=== PATIENT | female | born 1985 | race Two or more races ===

== ENCOUNTER 2020-04-08 10:35 | Emergency (ER) | payer OTHER ==
[2020-04-08 10:44] VITALS: BP 139/92; PULSE 102; RESP 18; TEMP 98.8
[2020-04-08] MEDS ORDERED: SULFAMETHOX-TMP 800-160MG 1 EACH TAB PO STA (11:14)
[2020-04-08] MEDS ORDERED: SULFAMETH-TMP DS STARTER PACK 2 TAB BTL PO STA (11:14)
--- NOTE | 2020-04-08 11:27 | ED ---
General Adult HPI - General Chief complaint: Skin/Abscess/Foreign Body Stated complaint: bug bite Time Seen by Provider: 04/08/20 10:45 Source: patient, RN notes reviewed, old records reviewed Mode of arrival: ambulatory Limitations: no limitations - History of Present Illness Initial comments: 34-year-old female patient presents to ED for evaluation of possible infection to her anterior abdomen and has been ongoing for the last 2 days. Denies any systemic symptoms such as fever. Nausea and vomiting. Denies any chance of being . Denies any IV drug use. Systemic: Pt denies fatigue, fever/chills, rash. Pt denies weakness, night sweats, weight loss. Neuro: Pt denies headache, visual disturbances, syncope or pre-syncope. HEENT: Pt denies ocular discharge or irritation, otalgia, rhinorrhea, pharyngitis or notable lymphadenopathy. Cardiopulmonary: Pt denies chest pain, SOB, heart palpitations, dyspnea on exertion. Abdominal/GI: Pt denies abdominal pain, n/v/d. : Pt denies dysuria, burning w/ urination, frequency/urgency. Denies new onset urinary or bowel incontinence. MSK: Pt denies myalgia, loss of strength or function in extremities. Neuro: Pt denies new onset weakness, paresthesias. - Related Data Previous Rx's Medication Instructions Recorded Sulfamethox-Tmp 800-160Mg [Bactrim 1 tab PO Q12HR #20 tab 04/08/20 DS 800-160 mg] Allergies Allergy/AdvReac Type Severity Reaction Status Date / Time meperidine [From Demerol] Allergy Unknown Verified 04/08/20 11:13 strawberry Allergy Anaphylaxis Verified 04/08/20 11:13 Review of Systems ROS Statement: Those systems with pertinent positive or pertinent negative responses have been documented in the HPI. ROS Other: All systems not noted in ROS Statement are negative. Past Medical History Additional Past Medical History / Comment(s): Osteoporosis History of Any Multi-Drug Resistant Organisms: None Reported Past Surgical History: Tubal Ligation Past Psychological History: No Psychological Hx Reported Smoking Status: Current every day smoker Past Alcohol Use History: None Reported Past Drug Use History: Marijuana General Exam - General Exam Comments Initial Comments: Constitutional: NAD, AOX3, Pt has pleasant affect. HEENT: NC/AT, trachea midline, neck supple. External ears appear normal, without discharge. Mucous membranes moist. EOM intact. There is no scleral icterus. No pallor noted. Cardiopulmonary: RRR, no murmurs, rubs or gallops, no JVD noted. Lungs CTAB in anterior and posterior hodges. No peripheral edema. Abdominal exam: Abdomen soft and non-distended. Abdomen non-tender to palpation in all 4 quadrants with exception of area of abscess. Bowel sounds active in LLQ. No hepatosplenomegaly. No ecchymosis Neuro: CN II-XII grossly intact. No nuchal rigidity. No raccon eyes, no guaman sign, no hemotympanum. MSK: Superficial 2 x 2 cm abscess right lower quadrant region. Full active ROM in upper and lower extremities. Limitations: no limitations Course Vital Signs 04/08/20 10:41 Temperature 98.8 F Pulse Rate 102 H Respiratory 18 Rate Blood Pressure 139/92 O2 Sat by Pulse 100 Oximetry Procedures - Incision & Drainage Consent Obtained: verbal consent, written consent Indication: abscess Site: abdomen Size (cm): 2 I&D Cleaning Method: Chloroprep Sterile Field Used?: No Needle Aspiration Performed?: Yes I&D Drainage Obtained: Blood Medical Decision Making - Medical Decision Making 34-year-old female patient presents for evaluation of abscess ongoing the last 2 days. Patient also signs are stable, afebrile. Physical exam displayed superficial abscess. Incision and drainage was performed displayed blood. Patient discharged with Bactrim outpatient follow-up and return precautions. Case discussed with Dr. Fuentes. Disposition Clinical Impression: Abscess Disposition: HOME SELF-CARE Condition: Stable Instructions (If sedation given, give patient instructions): Abscess Incision and Drainage (ED), Abscess (ED) Additional Instructions: Taken antibiotics as directed. Keep area clean and loosely covered with a piece of gauze. Use a warm compresses a few times a day. Return to ER if symptoms do not improve or worsen within the next 1-2 days. Follow up with PCP tomorrow. Prescriptions: Sulfamethox-Tmp 800-160Mg [Bactrim DS 800-160 mg] 1 tab PO Q12HR #20 tab Is patient prescribed a controlled substance at d/c from ED?: No Referrals: None,Stated [Primary Care Provider] - 1-2 days John Jacobs [STAFF PHYSICIAN] - 1-2 days
== END 2020-04-08 11:49 | disposition home or self-care (01) ==
LOC: EC 10:35
DX: L02.211 Cutaneous abscess of abdominal wall (principal); F17.200 Nicotine dependence, unspecified, uncomplicated; Z88.6 Allergy status to analgesic agent; Z91.018 Allergy to other foods
CPT/HCPCS: 10060; 99283